=== PATIENT | female | born 1985 | race Caucasian/White ===

== ENCOUNTER 2017-05-08 11:40 | Emergency (ER) | payer OTHER | END 2017-05-08 13:21 | disposition left against medical advice (07) | LOC: UCCORT 11:40 | DX: J02.9 Acute pharyngitis, unspecified (principal); Z53.21 Procedure and treatment not carried out due to patient leaving prior to being seen by health care provider ==

== ENCOUNTER 2017-05-08 15:55 | Emergency (ER) | payer OTHER ==
--- NOTE | 2017-05-08 17:14 | UC ---
Throat Pain/Nasal Dominic HPI - HPI Summary HPI Summary: 31F presents with sore throat for a 4 days. She has history of strept and states that feels similar. denies any cough, fever, SOB, chest pain. admits to sinus congestion and post nasal drip. no history of mono. no one else is sick. no medical conditions. - History of Current Complaint Chief Complaint: UCRespiratory Stated Complaint: SORE THROAT Time Seen by Provider: 05/08/17 16:23 Hx Last Menstrual Period: 04/24/17 - Allergies/Home Medications Allergies/Adverse Reactions: Allergies Allergy/AdvReac Type Severity Reaction Status Date / Time No Known Allergies Allergy Verified 05/08/17 16:21 Home Medications: Home Medications Levonorgestrel & Eth Estradiol [Sronyx] 1 tab PO DAILY 05/08/17 [History Confirmed 05/08/17] PMH/Surg Hx/FS Hx/Imm Hx Endocrine History: Other Other Endocrine History: no DM Cardiovascular History: Other Other Cardiovascular History: no HTN - Surgical History Surgical History: None - Family History Known Family History: Positive: Hypertension - Social History Alcohol Use: Occasionally Substance Use Type: None Smoking Status (MU): Never Smoked Tobacco - Immunization History Most Recent Influenza Vaccination: no Review of Systems Constitutional: Negative ENT: Sore Throat Cardiovascular: Negative All Other Systems Reviewed And Are Negative: Yes Physical Exam Triage Information Reviewed: Yes Appearance: Well-Appearing Vital Signs: Initial Vital Signs Temp 98.4 F 05/08/17 16:17 Pulse 71 05/08/17 16:17 Resp 14 05/08/17 16:17 BP 126/81 05/08/17 16:17 Pulse Ox 100 05/08/17 16:17 Vital Signs Reviewed: Yes Eyes: Positive: Conjunctiva Clear ENT: Positive: Pharyngeal erythema, TMs normal, Tonsillar swelling - +2, Tonsillar exudate, Other: - uvula midline, soft palate symmetric. Negative: Trismus, Muffled/hoarse voice Respiratory: Positive: Lungs clear, Normal breath sounds Cardiovascular: Positive: RRR Abdomen Description: Positive: Nontender, Soft Bowel Sounds: Positive: Present Musculoskeletal Exam: Normal Neurological Exam: Normal Psychological Exam: Normal Skin Exam: Normal Throat Pain/Nasal Course/Dx - Course Course Of Treatment: 31F presents with sore throat for a 4 days. She has history of strept and states that feels similar. denies any cough, fever, SOB , chest pain. admits to sinus congestion and post nasal drip. no history of mono. no one else is sick. no medical conditions. uvula midline, soft palate symmetric. tonsils+2 with exudate. strept neg. will treat with steriod and magic mouth wash. patient understands and agrees with plan. - Differential Dx/Diagnosis Differential Diagnosis/HQI/PQRI: Pharyngitis, Tonsillitis, URI Provider Diagnoses: pharyngitis Discharge - Discharge Plan Condition: Good Disposition: HOME Prescriptions: Dexamethasone TAB* [Decadron TAB*] 4 mg PO DAILY #5 tab Magic Mouth Was-PETRA/MAAL/LIDO* 5 ml SWISH SPIT QID #100 ml Patient Education Materials: Pharyngitis (ED) Referrals: Non Staff,Doctor [Primary Care Provider] - Additional Instructions: Magic mouthwash 5ml swish and spit can use 4x a day Take steroid once a day for 5 days Take Tylenol or ibuprofen for pain Can gargle salt water Can use cough drops or products such as cloraseptic spray Return to ED if develop fever does not respond to Tylenol or ibuprofen, inability to swallow, or difficulty breathing or any new or worsening symptoms
== END 2017-05-08 17:21 | disposition home or self-care (01) ==
LOC: UCCORT 15:55
DX: J02.9 Acute pharyngitis, unspecified (principal)
CPT/HCPCS: 87651; 99212; G0463

== ENCOUNTER 2018-12-05 08:18 | Emergency (ER) | payer OTHER ==
[2018-12-05 08:42] VITALS: BP 131/77
--- NOTE | 2018-12-05 09:44 | UC ---
Laceration HPI - HPI Summary HPI Summary: 33 yo female lacerated her left ring and little finger on rotatary cutter this AM Td up to date she is right handed - History Of Current Complaint Chief Complaint: UCLaceration Stated Complaint: LEFT 4TH & 5TH FINGER LACERATION Time Seen by Provider: 12/05/18 09:27 Hx Obtained From: Patient Hx Last Menstrual Period: Depo Laceration Location: Finger - LLF, LLF Mechanism Of Injury: Sharp Trauma Severity: Mild Pain Intensity: 4 Pain Scale Used: 0-10 Numeric Hands: 1 - lac 2 - lac - Allergies/Home Medications Allergies/Adverse Reactions: Allergies Allergy/AdvReac Type Severity Reaction Status Date / Time No Known Allergies Allergy Verified 12/05/18 08:42 Home Medications: Home Medications medroxyPROGESTERone ACETATE* [DEPO-Provera] 150 mg IM SEE INSTRUCTIONS 12/05/18 [History Confirmed 12/05/18] PMH/Surg Hx/FS Hx/Imm Hx Previously Healthy: Yes - Surgical History Surgical History: None - Family History Known Family History: Positive: Hypertension Negative: Cardiac Disease, Diabetes - Social History Alcohol Use: Occasionally Substance Use Type: None Smoking Status (MU): Never Smoked Tobacco - Immunization History Most Recent Influenza Vaccination: no Most Recent Tetanus Shot: 2012 Review of Systems All Other Systems Reviewed And Are Negative: Yes Constitutional: Positive: Negative Skin: Positive: Negative Eyes: Positive: Negative ENT: Positive: Negative Respiratory: Positive: Negative Cardiovascular: Positive: Negative Gastrointestinal: Positive: Negative Genitourinary: Positive: Negative Motor: Positive: Negative Neurovascular: Positive: Negative Musculoskeletal: Positive: Negative Neurological: Positive: Negative Psychological: Positive: Negative Physical Exam Triage Information Reviewed: Yes Appearance: Well-Appearing, No Pain Distress, Well-Nourished Vital Signs: Initial Vital Signs Temp 97.7 F 12/05/18 08:36 Pulse 85 12/05/18 08:36 Resp 16 12/05/18 08:36 BP 131/77 12/05/18 08:36 Pulse Ox 100 12/05/18 08:36 Vital Signs Reviewed: Yes Eyes: Positive: Conjunctiva Clear ENT: Positive: Hearing grossly normal. Negative: Nasal congestion, Nasal drainage, Trismus, Muffled voice, Hoarse voice Neck: Positive: Supple Respiratory: Positive: Lungs clear, Normal breath sounds, No respiratory distress, No accessory muscle use Cardiovascular: Positive: RRR, No Murmur Musculoskeletal: Positive: ROM Intact, No Edema Neurological: Positive: Alert Psychological Exam: Normal Skin Exam: Other - see image Laceration Repair - Laceration Repair 1 Description: Linear Laceration Size After Repair: Length (cm) - 1.4, Width (mm) - 1, Depth (mm) - 1 Modified For Repair: No Irrigation With Pressure Irrigation Device: Yes Closure Material: Skin Adhesive 2 Procedure Summary: NO REPAIR NECESSARY Description: Linear Laceration Size After Repair: Length (cm) - 2, Width (mm) - <1, Depth (mm) - ,<1 Irrigation With Pressure Irrigation Device: Yes Laceration Course/Dx - Diagnosis Provider Diagnosis: Laceration of left little finger, Superficial injury of left ring finger Discharge - Sign-Out/Discharge Documenting (check all that apply): Patient Departure All imaging exams completed and their final reports reviewed: No Studies - Discharge Plan Condition: Stable Disposition: HOME Patient Education Materials: Skin Adhesive Care (ED) Referrals: Nathan Wills MD [Primary Care Provider] - If Needed - Billing Disposition and Condition Condition: STABLE Disposition: Home
== END 2018-12-05 10:01 | disposition home or self-care (01) ==
LOC: UCCORT 08:18
DX: S61.215A Laceration without foreign body of left ring finger without damage to nail, initial encounter (principal); S61.217A Laceration without foreign body of left little finger without damage to nail, initial encounter; W45.8XXA Other foreign body or object entering through skin, initial encounter; Y92.9 Unspecified place or not applicable
CPT/HCPCS: 12001; 99211; G0463